=== PATIENT | female | born 1975 | race Caucasian/White ===

== ENCOUNTER 2017-01-26 23:58 | Inpatient (IN) ==
[2017-01-27] MEDS ORDERED: NS 1,000 ML IV ONE (00:33)
[2017-01-27 00:46] LABS: ALLEN TEST YES; BE 0.5 mmoll (-3.0-3.0); BLOOD TYPE ARTERIAL; DRAW SITE R BRACHIAL; O2(CT) 15.6 mL/dL (15.0-23.0); PCO2(98.6) 41 mmHg (35-45); PO2(98.6) 90 mmHg (60-100); SAMPLE BLOOD; THB 11.8 g/dL (11.5-17.4)
[2017-01-27 00:47] LABS: MODALITY CANNULA
[2017-01-27 00:49] LABS: MANUAL DIFF NEEDED? NO
[2017-01-27 00:53] LABS: BASO% 0.3 % (0.0-0.8); EOS# 0.28 X1000 (0.0-0.7); EOS% 3.2 % (0.0-10.0); HEMATOCRIT 36.1 % (37.0-47.0); HEMOGLOBIN 12.2 g/dL (12.0-16.0); IMM GRAN# 0.02 X1000 (0.0-0.04); IMM GRAN% 0.2 % (0.0-0.5); LYMPH# 1.57 X1000 (1.2-3.4); MCH 30.5 PG (27-31); MCHC 33.8 g/dL (33-37); MCV 90.3 FL (81-99); MONO# 0.66 X1000 (0.11-0.59); MONO% 7.6 % (1.7-9.3); MPV 8.7 FL (7.4-10.4); NEUT% 70.7 % (42.2-75.2); PLT 243 X1000 (130-400)
[2017-01-27 01:13] LABS: AGAP 12; ALBUMIN 4.2 g/dL (3.5-5.0); ALKALINE PHOSPHATASE 89 U/L (32-104); BUN 9 mg/dL (8-22); CALCIUM 8.6 mg/dL (8.8-10.2); CHLORIDE 104 mmol/L (98-107); COSMO 280; GOT 48 U/L (10-30); GPT 19 U/L (10-36); POTASSIUM 3.8 mmol/L (3.5-5.1); SODIUM 141 mmol/L (136-145); TCO2 25 mmol/L (25-35)
[2017-01-27 01:35] LABS: URINE MICRO REVIEW NEEDED? NO; URINE SOURCE CATH
[2017-01-27 01:50] LABS: BILIRUBIN URINE NEGATIVE (NEGATIVE); BLOOD URINE NEGATIVE (NEGATIVE); COLOR YELLOW; GLUCOSE URINE NEGATIVE (NEGATIVE); LEUKOCYTES URINE NEGATIVE (NEGATIVE); NITRITE URINE NEGATIVE (NEGATIVE); PH URINE 6.5; PROTEIN URINE TRACE mg/dL (NEGATIVE); SP GRAVITY URINE 1.017; TURBIDITY URINE CLEAR (CLEAR); UROBILINOGEN URINE NORMAL (NORMAL)
[2017-01-27 01:52] LABS: UR EPITHELIAL CELLS <10 /HPF (<10); URINE BACTERIA 3+ /HPF; URINE CULTURE NEEDED? YES; URINE RBC <10 /HPF (<10); URINE WBC <10 /HPF (<10)
[2017-01-27 02:12] LABS: UR AMPHETAMINES QUAL NONE DETECTED (NONE DETECT); UR BARBITUATES QUAL NONE DETECTED (NONE DETECT); UR BENZODIAZEPIN QUAL PRESUMPTIVE POSITIVE (NONE DETECT); UR CANNABINOIDS QUAL NONE DETECTED (NONE DETECT); UR COCAINE QUAL PRESUMPTIVE POSITIVE (NONE DETECT); UR METHADONE QUAL NONE DETECTED (NONE DETECT); UR OPIATES QUAL PRESUMPTIVE POSITIVE (NONE DETECT); UR OXYCODONE QUAL PRESUMPTIVE POSITIVE (NONE DETECT); UR PCP QUAL PRESUMPTIVE POSITIVE (NONE DETECT)
--- NOTE | 2017-01-27 03:42 | PROVIDER DOCUMENTATION ---
This chart was entered by Ab Vasquez Scribe, acting as scribe for Lance Edmonds MD. [id number] Abuse/Overdose - General Chief Complaint: Overdose Stated Complaint: AMS, POSSIBLE OVERDOSE Time Seen by Provider: 01/27/17 00:23 Source: family Allergies/Adverse Reactions: Allergies Allergy/AdvReac Type Severity Reaction Status Date / Time No Known Allergies Allergy Verified 01/27/17 00:27 Home Medications: Home Medication List Medication Instructions Recorded Confirmed Last Taken Type Gabapentin [Neurontin] 800 mg PO TID 10/28/14 01/27/17 09/04/16 History Clonazepam [Klonopin] 2 mg PO TID PRN 09/08/15 01/27/17 09/04/16 History Buprenorphine S.l. [Subutex] 4 mg SL BID #30 tablet 11/12/15 01/27/17 09/04/16 Rx Amitriptyline [Elavil] 100 mg PO DAILY 09/04/16 01/27/17 09/03/16 History - History of Present Illness-Drug/Alcohol Nature of Presenting Problem: Pt is a 41 yowf who presents to ER with who reports that pt might have overdosed on her amitriptyline. reports that pt got home at 0400 yesterday am after drinking etoh, had a verbal altercation with her , and then made indications that she overdosed on her medicine, but states that pt later said that she did not overdose. This episode of drinking or use began:: unsure Severity: reports: moderate Situational problems related to:: reports: spouse Psychiatric Complaints: reports: other (pt sleeping on exam) Associated Symptoms: reports: fatigue. denies: chest pain, diaphoresis, diarrhea, fever/chills, headaches, heartburn, joint pain, loss of appetite, muscle aches, nausea, shortness of breath, vomiting, weakness, trouble walking Any injuries associated with this episode of intoxication?: No Similar Symptoms Previously?: Yes Recently seen or treated by another doctor?: No Review of Systems - Adult - REVIEW OF SYSTEMS - ADULT Constitutional: denies: chills, fever, fatique, night sweats, weight gain, weight loss Eyes: reports: no symptoms reported Ears, Nose, Mouth & Throat: reports: no symptoms reported Cardiovascular: denies: chest pain, irregular heart rate, palpitations, poor circulation, syncope Respiratory: denies: cough, dyspnea on exertion, excessive sputum production, shortness of breath, wheezing Gastrointestinal: reports: no symptoms reported Genitourinary: reports: no symptoms reported Musculoskeletal: reports: no symptoms reported Integumentary: reports: no symptoms reported Neurological: reports: no symptoms reported Psychiatric: reports: anti-depressant use, alcohol/drug dependence, depression, emotional problems. denies: anxiety, insomnia, panic attacks, suicidal thoughts Endocrine: reports: no symptoms reported Hematologic/Lymphatic: reports: no symptoms reported Allergic/Immunologic: reports: no symptoms reported All Other Systems: Reviewed and Negative Past History - Adult - PAST MEDICAL HISTORY-ADULT Review of Records: reports: Nursing Assessment Review, Medications Reviewed Musculoskeletal: reports: intervertebral disc disease, other Neurological: reports: headaches/migraines Psychiatric: reports: anxiety, bipolar - PRIOR SURGERIES/PROCEDURES Surgical/Procedure History: reports: BTL - IMMUNIZATION STATUS Childhood Immunizations: See Nurse Assessment Flu Vaccine: See Nurse Assessment Physical Exam-General - PHYSICAL EXAM-ADULT Initial Vital Signs Reviewed: Yes - CONSTITUTIONAL General Appearance: appears well, lethargic, other (sleeping on exam). negative : alert - EYES Eyes: PERRL/EOMI, pink conjunctivae - RESPIRATORY Respiratory: chest non-tender, lungs clear, normal breath sounds, no pleuratic chest pain, no respiratory distress, no accessory muscle use. negative: respiratory distress, decreased breath sounds, accessory muscle use, wheezing - CARDIOVASCULAR Cardiovascular: normal peripheral pulses, regular rate, rhythm. negative: bradycardia, tachycardia, irregularly irregular - GASTROINTESTINAL (ABDOMEN) Abdominal Exam: normal bowel sounds, soft, no organomegaly, no pulsatile mass, tenderness (diffusely tender). negative: non tender - PSYCHIATRIC Psych/Mental Status: normal thought content, normal thought process, depressed affect, other (sleeping on exam). negative: normal mood/affect, oriented x 3 Progress - PLAN OF CARE/RESULTS Progress/Plan/Lab Results: Vital Signs - 8 hr 01/27/17 00:14 01/27/17 01:09 01/27/17 03:00 Temperature 97.9 F Pulse Rate 102 H 94 H 92 H Respiratory Rate 16 19 23 Blood Pressure 97/58 128/85 124/84 O2 Sat by Pulse Oximetry 97 100 100 Laboratory Results - last 24 hr 01/27/17 01/27/17 01/27/17 00:37 00:37 00:37 WBC 8.70 RBC 4.00 L Hgb 12.2 Hct 36.1 L MCV 90.3 MCH 30.5 MCHC 33.8 RDW Std Deviation 13.5 Plt Count 243 MPV 8.7 Immature Gran % (Auto) 0.2 Neut % (Auto) 70.7 Lymph % (Auto) 18.0 L Carl[place] % (Auto) 7.6 Eos % (Auto) 3.2 Baso % (Auto) 0.3 Immature Gran # (Auto) 0.02 Neut # (Auto) 6.14 Lymph # (Auto) 1.57 Carlton # (Auto) 0.66 H Eos # (Auto) 0.28 Baso # (Auto) 0.03 Specimen Type ARTERIAL Sample Site R BRACHIAL pH 7.40 pCO2 41 pO2 90 HCO3 25.2 Base Excess 0.5 Oxyhemoglobin 93.3 L ABG O2 Sat (Calculated) 15.6 ABG O2 Saturation 98.0 ABG Carboxyhemoglobin 3.80 H ABG Methemoglobin 1.0 Luis Test YES A-a O2 Difference 58.0 Total Hemoglobin 11.8 Lactate 0.50 Liter Flow 2.0 Blood Gas Modality CANNULA FiO2 % 28.0 Sodium Potassium Chloride Carbon Dioxide Anion Gap BUN Creatinine Estimated GFR/1.73 m2 BUN/Creatinine Ratio Glucose Calculated Osmolality Calcium Total Bilirubin AST ALT Alkaline Phosphatase Total Protein Albumin Globulin Albumin/Globulin Ratio Urine Source Urine Color Urine Turbidity Urine pH Ur Specific [place] Urine Protein Ur Glucose (Stick) Ur Ketones (Stick) Urine Blood Urine Nitrite Urine Bilirubin Urobilinogen Dipstick Urine Leukocytes Urine WBC (Auto) Urine RBC (Auto) U Epithel Cells (Auto) Urine Bacteria (Auto) Urine Opiates Screen Ur Oxycodone Screen Ur Methadone, Qual Ur Barbiturates Screen Ur Phencyclidine Scrn Ur Amphetamines Screen U Benzodiazepines Scrn Urine Cocaine Screen U Cannabinoids Screen Plasma/Serum Ethyl Alc 01/27/17 01/27/17 01/27/17 00:37 01:23 01:23 WBC RBC Hgb Hct MCV MCH MCHC RDW Std Deviation Plt Count MPV Immature Gran % (Auto) Neut % (Auto) Lymph % (Auto) Carl[place] % (Auto) Eos % (Auto) Baso % (Auto) Immature Gran # (Auto) Neut # (Auto) Lymph # (Auto) Carl[place] # (Auto) Eos # (Auto) Baso # (Auto) Specimen Type Sample Site pH pCO2 pO2 HCO3 Base Excess Oxyhemoglobin ABG O2 Sat (Calculated) ABG O2 Saturation ABG Carboxyhemoglobin ABG Methemoglobin Luis Test A-a O2 Difference Total Hemoglobin Lactate Liter Flow Blood Gas Modality FiO2 % Sodium 141 Potassium 3.8 Chloride 104 Carbon Dioxide 25 Anion Gap 12 BUN 9 Creatinine 0.9 Estimated GFR/1.73 m2 > 60 BUN/Creatinine Ratio 10 Glucose 97 Calculated Osmolality 280 Calcium 8.6 L Total Bilirubin 0.30 AST 48 H ALT 19 Alkaline Phosphatase 89 Total Protein 7.0 Albumin 4.2 Globulin 2.8 Albumin/Globulin Ratio 1.5 Urine Source CATH Urine Color YELLOW Urine Turbidity CLEAR Urine pH 6.5 Ur Specific [place] 1.017 Urine Protein TRACE A Ur Glucose (Stick) NEGATIVE Ur Ketones (Stick) NEGATIVE Urine Blood NEGATIVE Urine Nitrite NEGATIVE Urine Bilirubin NEGATIVE Urobilinogen Dipstick NORMAL Urine Leukocytes NEGATIVE Urine WBC (Auto) <10 Urine RBC (Auto) <10 U Epithel Cells (Auto) <10 Urine Bacteria (Auto) 3+ Urine Opiates Screen PRESUMPTIVE POSITIVE A Ur Oxycodone Screen PRESUMPTIVE POSITIVE A Ur Methadone, Qual NONE DETECTED Ur Barbiturates Screen NONE DETECTED Ur Phencyclidine Scrn PRESUMPTIVE POSITIVE A Ur Amphetamines Screen NONE DETECTED U Benzodiazepines Scrn PRESUMPTIVE POSITIVE A Urine Cocaine Screen PRESUMPTIVE POSITIVE A U Cannabinoids Screen NONE DETECTED Plasma/Serum Ethyl Alc Orders Category Date Time Status CHEST-PORTABLE [RAD] Stat Exams 01/27/17 00:31 Taken HEAD W/O CONTRAST [CT] Stat Exams 01/27/17 00:31 Taken ABG [RESP] Routine Lab 01/27/17 00:37 Completed ALCOHOL BLOOD Stat Lab 01/27/17 00:37 Completed CBC WITH DIFF [HEME] Stat Lab 01/27/17 00:37 Completed CMP [COMPREHENSIVE METABOLIC PANEL] [CHEM] Stat Lab 01/27/17 00:37 Completed URINALYSIS W/POSS RFLX CULT [URINALYSIS] Stat Lab 01/27/17 01:23 Completed URINE CULTURE [RM] Routine Lab 01/27/17 02:16 Received URINE DRUG SCREEN Stat Lab 01/27/17 01:23 Completed 0.9% Sodium Chloride Inj [Ns] 1,000 ml Med 01/27/17 00:33 Active IV 150 mls/hr EKG [EKG] Stat Ther 01/27/17 00:31 Ordered Result Diagrams: 01/27/17 00:37 01/27/17 00:37 - XRAY 1 XRAY: Bilateral XRAY Study: Chest Impression: See EMR Report XRAY Interpretation: Normal - Dr. Edmonds - CT/MRI 1 CT Study: Head Impression: See EMR Report CT Results: No acute intracranial abnormality is identified - Dr. Gutierrez ( Radiologist) - CONSULTS/PCP/HOSPITALIST Notification #1 *Consult/PCP/Hospitalist*: [place] Time Discussed: 03:41 Consult Disposition: Will see in ED, Admit Departure - Departure Date of Disposition Decision: 01/27/17 Time of Disposition Decision: 00:30 DIAGNOSIS: Overdose, Polysubstance abuse Disposition: ADMITTED INPATIENT 09 Certified Medical Emergency: Emergent Condition: Fair Referrals and Follow-Ups: Golden Terrell MD [Primary Care Provider] - - Critical Care Note This patient required my direct & personal management of CC.: No This chart was documented by the indicated scribe, (Ab Vasquez Scribe) and accurately reflects the services I performed and decisions made by me, Lance Edmonds MD, as attested by the provider's signature.
[2017-01-27] MEDS ORDERED: ZOFRAN IV PRN (04:30)
[2017-01-27] MEDS: LOVENOX SUBQ SCH (05:37)
--- NOTE | 2017-01-27 05:45 | HISTORY AND PHYSICAL ---
CHIEF COMPLAINT: Altered mental status. HISTORY OF PRESENT ILLNESS: This is a 41-year-old female with a longstanding history of polysubstance abuse, including [place], Roxicodone, Percocet, cocaine, marijuana and alcohol. She has been in and out of [facility] but failed drug testing. The patient was obtunded and was not able to tell us on this admission if she has been currently receiving treatment. She reportedly went out drinking with her daughter who is 26 on and has been altered since then. There was no family at the bedside during the interview and the patient was not able to provide much past medical history. She did reflex to pain. She had severely slurred speech, although she was oriented to person, place, and situation and did ask that her not find out that she had taken drugs. An EKG was obtained in the ER which showed a prolonged QT interval. Toxicology screen was presumptively positive for opiates, oxycodone, phencyclidine, benzodiazepines and cocaine. She will be admitted to the ICU with frequent neuro checks for further evaluation and treatment. PAST MEDICAL HISTORY: 1. Polysubstance abuse. 2. Head injuries. 3. Blackouts. 4. Bipolar disorder. 5. Depression. 6. Chronic hemorrhoids. 7. Iron deficiency anemia. 8. History of TB. 9. Chronic migraines. 10. Arthritis. PREVIOUS SURGICAL HISTORY: Was unable to review. SOCIAL HISTORY: Lives at home with her . Apparently does recreationally use drugs and has for quite some time. Smokes 1 pack of cigarettes per day and does occasionally use alcohol according to old medical charting. The patient did admit to drinking and having 2 "lines of cocaine." FAMILY HISTORY: Again, this could not be reviewed with the patient, as she was fairly lethargic and only aroused and spoke very few words. ALLERGIES: No known drug allergies. HOME MEDICATIONS: 1. Neurontin 800 mg p.o. t.i.d. 2. Klonopin 2 mg p.o. t.i.d. p.r.n. 3. Subutex 4 mg sublingual b.i.d. 4. Elavil 100 mg p.o. daily, although I am not sure if this is an updated medication list. REVIEW OF SYSTEMS: Fourteen point review of systems could not be fully conducted. Pertinent positives are listed above in the HPI for admission. PHYSICAL EXAMINATION: VITAL SIGNS: Temperature 97.9 degrees, pulse 97, respirations 18, blood pressure 115/81, oxygen saturation 100% on 2 L nasal cannula. GENERAL: Very lethargic to obtunded 41-year-old female. Does arouse to very deep stimulus. She was able to provide her name, that she was in the hospital and that she had taken some illicit substances. She is in no acute distress. HEENT: Head is atraumatic, normocephalic. Pupils equal, round, reactive to light. Extraocular eye movement intact. Sclerae is anicteric. Conjunctivae is pink. Oral mucosa is dry. Her lips were noted to be chapped. NECK: Supple. Trachea is midline. No JVD. CARDIAC: S1-S2 appreciated. No murmurs, gallops, rubs. Regular rhythm. LUNGS: Clear to auscultation bilaterally. No rhonchi, wheezes, or rales. Symmetrical rise and fall with respirations. ABDOMEN: Soft, nondistended, nontender. Bowel sounds present in all 4 quadrants. Normoactive. No pulsatile mass. No organomegaly. EXTREMITIES: No clubbing, cyanosis, or edema. Two plus pedal pulses. GENITOURINARY: Patient voids, otherwise deferred. DIAGNOSTIC DATA: CT of the head showed no acute intracranial process. Chest x-ray, no acute disease. LABORATORY DATA: Hemoglobin 12.2, hematocrit 36.1. ABG within normal limits. Chemistry panel within normal limits aside from calcium of 8.6 and AST of 48. Urine unremarkable. Toxicology screen positive for opiates, oxycodone, phencyclidine, benzodiazepines and cocaine. ASSESSMENT AND PLAN: 1. Toxic encephalopathy secondary to polysubstance abuse. We will place an ICU. Repeat EKG in a.m. Repeat magnesium level at noon related to prolonged QT interval. Normal saline at 150 mL an hour. Neuro checks q.2 hours. 2. Tobacco abuse. Smoking cessation could not be gone over with the patient, as she is mostly obtunded. 3. Migraines. We will hold all medications at this time. 4. Chronic opioid and benzodiazepine use. We will hold all sedating medications at this time. 5. Iron deficiency anemia. Hemoglobin and hematocrit are stable at this time. 6. Further recommendations per patient clinical course. Dictated by JORI Elizabeth for Chantell Mendez MD Seen,examined and discussed case with [employer] cc: JORI Elizabeth MD [facility]
--- NOTE | 2017-01-27 09:08 | Diag Imaging Result Doc PS360 ---
HEAD W/O CONTRAST - 01/27/2017 INDICATION: aloc TECHNIQUE: A CT dose reduction protocol was used. COMPARISON: 09/09/2011 FINDINGS: The ventricles and sulci are normal in size and contour. No intracranial mass or hemorrhage. The skull is intact. The sinuses mastoids and middle ears are clear. IMPRESSION: Negative exam. Electronically signed by Shar Pedraza 01/27/2017 9:05 AM
--- NOTE | 2017-01-27 09:09 | Diag Imaging Result Doc PS360 ---
CHEST-PORTABLE - 01/27/2017 INDICATION: aloc TECHNIQUE: COMPARISON: 11/12/2015 FINDINGS: Lung volumes are low with some patchy lower lobe atelectasis or infiltrate on the right side. Heart size remains normal. No pneumothorax or pleural effusion. IMPRESSION: Nonspecific findings. Electronically signed by Shar Pedraza 01/27/2017 9:07 AM
--- NOTE | 2017-01-27 09:26 | PROGRESS NOTE ---
DATE: 01/27/2017 SUBJECTIVE: Ms. Lindsey was admitted early this morning. Presented with altered mental status. She is a patient of Dr. Golden Terrell. 41-year-old with a longstanding history of polysubstance abuse including [place], oxycodone, Percocet, cocaine, marijuana, and alcohol. She has been in and out of [facility] treatment and failed drug testing. Patient is obtunded and not able to tell us on this admission if she has been currently receiving treatment. She reportedly went out drinking with her daughter, who is 26, on and has been altered since then. By the report, there is no family at the bedside during the interview, and the patient was not able to provide much medical history. She did reflux to pain. She had severely slurred speech, although she was oriented to person, place, and situation and did ask that her or fiancee not find out that she had been taken drugs. An EKG was obtained in the ER which showed prolonged QT interval. Toxicology screen was presumptively positive for opiates, oxycodone, phencyclidine, benzodiazepines, and cocaine. She was admitted to the ICU. PAST MEDICAL HISTORY: 1. Polysubstance abuse. 2. Head injuries. 3. Blackouts. 4. Bipolar disorder. 5. Depression. 6. Chronic hemorrhoids. 7. Iron deficiency anemia. 8. History of TB. 9. Chronic migraines. 10. Arthritis. The patient is a lethargic but arousable. She starts crying when she realizes where she is. She can move all extremities. No focal neurologic deficits appreciated. OBJECTIVE: Her temperature is 97.2 degrees, pulse 86, respirations 20, blood pressure 105/68. The pupils are equal and round this morning. Lungs clear in all lung gtz. Cardiovascular: Regular rhythm and rate without murmur or S3. Abdomen soft. Skin is warm and dry. White count 8700, hematocrit 36, platelet count 243,000. Sodium 141, potassium 3.8, chloride 104, bicarb 25. BUN 9, creatinine 0.9, calcium 8.6. Liver functions: Mild elevation of AST. She is positive for opiates, oxycodone, phencyclidine, benzodiazepines, and cocaine on the urine drug screen. ASSESSMENT AND PLAN: Drug overdose. Metabolic encephalopathy seems to be improving, hemodynamically stable. Continue IV fluids and observation in the ICU. I do not hear any history to suggest suicidal ideation. cc: Luis Paige MD
[2017-01-27] MEDS: NS 1,000 ML IV SCH (23:59)
[2017-01-27] MEDS: ATIVAN PO PRN (23:59)
[2017-01-28] MEDS: NS 1,000 ML IV SCH ×2 (06:01→14:08)
[2017-01-28 06:58] LABS: MANUAL DIFF NEEDED? NO
[2017-01-28 07:31] LABS: BASO% 0.5 % (0.0-0.8); EOS# 0.41 X1000 (0.0-0.7); EOS% 7.1 % (0.0-10.0); HEMATOCRIT 30.5 % (37.0-47.0); HEMOGLOBIN 10.3 g/dL (12.0-16.0); LYMPH% 39.8 % (20.5-51.1); MCH 30.4 PG (27-31); MCHC 33.8 g/dL (33-37); MONO# 0.39 X1000 (0.11-0.59); MONO% 6.7 % (1.7-9.3); MPV 9.1 FL (7.4-10.4); NEUT% 45.9 % (42.2-75.2); PLT 218 X1000 (130-400); RBC 3.39 XMIL (4.2-5.4)
[2017-01-28 07:36] LABS: AGAP 9; BUN 7 mg/dL (8-22); CALCIUM 8.1 mg/dL (8.8-10.2); CHLORIDE 107 mmol/L (98-107); COSMO 275; POTASSIUM 3.7 mmol/L (3.5-5.1); SODIUM 139 mmol/L (136-145); TCO2 23 mmol/L (25-35)
[2017-01-28] MEDS: LOVENOX SUBQ SCH (09:03)
[2017-01-28] MEDS: ATIVAN PO PRN ×2 (12:16→20:59)
[2017-01-28] MEDS: KLONOPIN PO PRN ×2 (13:49→21:02)
[2017-01-28] MEDS: NEURONTIN PO SCH (16:25)
[2017-01-28] MEDS: NICODERM PATCH TD PRN (16:38)
--- NOTE | 2017-01-28 17:24 | PROGRESS NOTE ---
DATE: 01/28/2017 SUBJECTIVE: She was very tearful and says she does not feel very good. She wants to just get away somewhere. She asked if I would have [facility] evaluate her, and see if she could go there for a time. Talked to her fiancee, he is concerned. It just does not seem like she has been very arthur and gets very anxious at times. Other times, she seems to be mellow and seems to get panic attacks. She just does not think the medication is working and feels like somebody needs to put her in the hospital and see if they can get her regulated. I am not sure if he is aware of all her medications including recreation medications she is taking. There has been a request not to discuss this. OBJECTIVE: Temperature 98 degrees, pulse 96, respirations 22, and blood pressure 120/69. HEENT: The pupils are equal and round. Lungs: Clear in all lung gtz. Cardiovascular: Regular rhythm and rate without murmur or S3. Abdomen: Soft. Skin: Warm and dry. Urine output 4 L. LABORATORY: White count 5780, hematocrit 30, platelet count 218,000, sodium 139, potassium 3.7, chloride 107, BUN 7 creatinine 0.8, and calcium 8.1. ASSESSMENT AND PLAN: 1. Polysubstance abuse. Polysubstance overdose, doing much better and hemodynamically stable. Breathing comfortably. 2. He has been diagnosed with bipolar. According to the fiancee, it does not feel like it has been well controlled. Would like her to go to a facility for more intensive therapy. 3. Major depression related to the bipolar. 4. Significant anxiety. I told her I would put her back on her Klonopin and start her on regular diet. 5. Review of lab again and review her current orders note her medication from home. Course in the drug screen, she was positive for opiates, oxycodone, phencyclidine, benzodiazepine and cocaine. There was no ethanol detected. MEDICATIONS AT HOME: She is on Elavil 100 mg a day. She is on Subutex 4 mg sublingual b.i.d. She is on her Klonopin 2 mg p.o. t.i.d. and Neurontin 800 mg t.i.d., and we will see if we can start those back. cc: Luis Paige MD
[2017-01-28] MEDS: SUBUTEX SL SCH (21:00)
[2017-01-28] MEDS ORDERED: ELAVIL PO SCH (23:41)
[2017-01-29] MEDS: NS 1,000 ML IV SCH ×3 (04:45→15:18)
--- NOTE | 2017-01-29 06:25 | EKG Report ---
Test Performed on : 01/27/2017 06:45:44 AM Test Reason : prolonged qt Blood Pressure : / mmHG Vent. Rate : 087 BPM Atrial Rate : 087 BPM P-R Int : 176 ms QRS Dur : 112 ms QT Int : 398 ms P-R-T Axes : 048 041 042 degrees QTc Int : 478 ms Normal sinus rhythm. Normal ECG When compared with ECG of 27-JAN-2017 04:04, (Unconfirmed) No significant change was found Confirmed by Flex FUNES, Yoshi Cosby ([id number]) on 01/30/2017 2:15:01 PM
[2017-01-29] MEDS: NEURONTIN PO SCH ×2 (08:55→15:17)
[2017-01-29] MEDS: LOVENOX SUBQ SCH (08:55)
[2017-01-29] MEDS: SUBUTEX SL SCH (08:55)
[2017-01-29] MEDS: NICODERM PATCH TD PRN (08:56)
[2017-01-29] MEDS: KLONOPIN PO PRN ×2 (08:56→15:17)
[2017-01-29] MEDS ORDERED: ELAVIL PO SCH (09:00)
[2017-01-29] MEDS ORDERED: SUBUTEX SL SCH (13:00)
[2017-01-29 14:31] VITALS: BP 134/93
--- NOTE | 2017-01-29 15:16 | PROGRESS NOTE ---
DATE: 01/29/2017 SUBJECTIVE: She is feeling much better. She wanted to know when she can go home and she would like to know she could get set up with a psychiatrist here in town. She also like to see if she can get signed up for Medicaid. I did explain that I am not sure we will find an inpatient setting. We will ask social workers to see if we can line up a psychiatrist here in town to help with the bipolar. She is eating well. Breathing comfortably. She just feels like she needs some help getting her bipolar disease straightened out. OBJECTIVE: Vital signs: Temperature 97.8 degrees, pulse 85, respirations 20, blood pressure 124/93. Lungs: Clear in all lung gtz. Cardiovascular: Regular rhythm and rate without murmur or S3. Abdomen: Soft. Skin: Is warm and dry. Urine output is 1200 mL. LAB: No new lab. ASSESSMENT AND PLAN: 1. Overdose multiple drugs and apparently long history of opioid dependency, she is back on the Suboxone. She needs to get follow up with the [facility]. 2. Bipolar which she feels like has never been stabilized. See if we can find psychiatrist here in town. 3. Major depression part of the bipolar, severe general anxiety with panic attacks. See if we can line her up to get followup for psychiatric care. Ask social service to help and see if she can get on Medicaid. cc: Luis Paige MD
--- NOTE | 2017-01-29 17:08 | DISCHARGE SUMMARY ---
ADMISSION DATE: 01/27/2017 DISCHARGE DATE: 01/29/2017 HISTORY AND HOSPITAL COURSE: This is a 41-year-old with a long-standing history of polysubstance abuse including [place], oxycodone, Percocet, codeine, marijuana, alcohol. She has been in and out of [facility] treatment but failed drug testing. The patient was obtunded and on presentation was not able to give much of the history this time. She reported she went out drinking with her daughter who is 26 on and had been altered since. There is no family at the bedside during the interview. The patient was not able to provide much past medical history. She did reflex to pain. She had severe slurred speech when she was aroused. She was oriented to person, place, and situation. Did ask that her fiance not find out that she was taking drugs. An EKG was obtained in the ER which showed prolonged QT interval. Toxicology screen presumed positive for opiates, oxycodone, phencyclidine, benzodiazepines, and cocaine. She was moved to the unit and she was given some IV fluids. She remained hemodynamically stable. Respiratory status seemed to be good with good air and gas exchange. We did replace electrolytes. She did arouse after 24 hours and she was able to eat, requested solid food. We put her back on her home list of medicines after almost 48 hours. She is getting Klonopin twice a day. She was on Subutex. She claims it was 8 mg t.i.d. She is taking 2 mg of Klonopin which she was taking t.i.d. by her report. She wanted to try and go over to a rehab facility and try to get evaluated by Ricardo. She is a private pay, with no money. She want to see if she could get eligible for Medicaid. There were no facilities willing to transfer her there and so she wanted to go home. She requested that we give her prescriptions for her Klonopin and her Suboxone, but we explained she will need to get that from her from her primary care and she will need to get back into a pain clinic. As far as her bipolar, she needs to continue to go back to her psychiatrist. cc: Luis Paige MD
== END 2017-01-29 15:52 | disposition home or self-care (01) ==
LOC: ED 23:58 → SUATTDRO 01-27 04:10 → ICU 01-27 04:10 → 3N 01-27 23:40
PROVIDERS: ATTEND Emergency Medicine

== ENCOUNTER 2017-03-05 13:31 | Inpatient (IN) ==
[2017-03-05 13:57] LABS: URINE CULTURE NEEDED? NO; URINE MICRO REVIEW NEEDED? NO; URINE SOURCE CLEAN CATCH
[2017-03-05 14:07] LABS: BILIRUBIN URINE NEGATIVE (NEGATIVE); BLOOD URINE TRACE (NEGATIVE); COLOR YELLOW; GLUCOSE URINE NEGATIVE (NEGATIVE); LEUKOCYTES URINE NEGATIVE (NEGATIVE); NITRITE URINE NEGATIVE (NEGATIVE); PROTEIN URINE NEGATIVE (NEGATIVE); TURBIDITY URINE CLEAR (CLEAR); UR EPITHELIAL CELLS <10 /HPF (<10); URINE BACTERIA NEGATIVE /HPF; URINE RBC <10 /HPF (<10); URINE WBC <10 /HPF (<10); UROBILINOGEN URINE NORMAL (NORMAL)
[2017-03-05 14:12] LABS: MANUAL DIFF NEEDED? NO
[2017-03-05 14:16] LABS: BASO% 0.9 % (0.0-0.8); EOS# 0.46 X1000 (0.0-0.7); EOS% 7.9 % (0.0-10.0); HEMOGLOBIN 11.9 g/dL (12.0-16.0); LYMPH# 1.59 X1000 (1.2-3.4); LYMPH% 27.4 % (20.5-51.1); MCH 30.7 PG (27-31); MCV 87.9 FL (81-99); MONO# 0.68 X1000 (0.11-0.59); MONO% 11.7 % (1.7-9.3); MPV 9.7 FL (7.4-10.4); NEUT% 52.1 % (42.2-75.2); PLT 238 X1000 (130-400); RBC 3.87 XMIL (4.2-5.4)
[2017-03-05 14:17] LABS: UR AMPHETAMINES QUAL PRESUMPTIVE POSITIVE (NONE DETECT); UR BARBITUATES QUAL NONE DETECTED (NONE DETECT); UR BENZODIAZEPIN QUAL PRESUMPTIVE POSITIVE (NONE DETECT); UR CANNABINOIDS QUAL NONE DETECTED (NONE DETECT); UR COCAINE QUAL NONE DETECTED (NONE DETECT); UR METHADONE QUAL NONE DETECTED (NONE DETECT); UR OPIATES QUAL PRESUMPTIVE POSITIVE (NONE DETECT); UR OXYCODONE QUAL PRESUMPTIVE POSITIVE (NONE DETECT); UR PCP QUAL NONE DETECTED (NONE DETECT)
[2017-03-05 14:43] LABS: AGAP 16; ALBUMIN 4.5 g/dL (3.5-5.0); ALKALINE PHOSPHATASE 78 U/L (32-104); AMYLASE 32 U/L (20-200); BUN 11 mg/dL (8-22); CHLORIDE 102 mmol/L (98-107); COSMO 274; GOT 24 U/L (10-30); GPT 18 U/L (10-36); LIPASE 17 U/L (13-60); MAGNESIUM 2.2 mg/dL (1.5-2.7); POTASSIUM 3.2 mmol/L (3.5-5.1); SODIUM 138 mmol/L (136-145); TCO2 20 mmol/L (25-35); TOTAL BILIRUBIN 0.44 mg/dL (0.20-1.00); TOTAL PROTEIN 7.7 g/dL (6.3-8.3)
[2017-03-05 14:59] LABS: ACETAMINOPHEN < 1.2 ug/mL (10-30)
[2017-03-05 15:08] LABS: FREE T4 0.96 ng/dL (0.93-1.70)
[2017-03-05] MEDS ORDERED: KLOR-CON PO ONE ×2 (15:19→22:32)
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
[2017-03-05] MEDS ORDERED: NS + KCL 20 MEQ 1,000 ML IV SCH (22:45)
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
[2017-03-06] MEDS ORDERED: DUONEB (A & A) INH ONE (05:58)
[2017-03-06] MEDS ORDERED: MOTRIN PO PRN (05:58)
[2017-03-06] MEDS ORDERED: HYDROXYZINE IM PRN (05:58)
[2017-03-06] MEDS ORDERED: AYR NASAL DROPS NAS PRN (05:58)
[2017-03-06] MEDS ORDERED: ZOFRAN IV PRN (05:58)
[2017-03-06 07:23] LABS: MANUAL DIFF NEEDED? NO
[2017-03-06 07:28] LABS: BASO% 0.7 % (0.0-0.8); EOS# 0.65 X1000 (0.0-0.7); EOS% 14.3 % (0.0-10.0); HEMATOCRIT 32.7 % (37.0-47.0); HEMOGLOBIN 11.2 g/dL (12.0-16.0); LYMPH# 1.59 X1000 (1.2-3.4); MCH 30.8 PG (27-31); MCHC 34.3 g/dL (33-37); MCV 89.8 FL (81-99); MONO# 0.43 X1000 (0.11-0.59); MONO% 9.5 % (1.7-9.3); MPV 9.9 FL (7.4-10.4); NEUT% 40.5 % (42.2-75.2); PLT 212 X1000 (130-400); RBC 3.64 XMIL (4.2-5.4)
[2017-03-06 07:54] LABS: AGAP 12; ALBUMIN 3.8 g/dL (3.5-5.0); ALKALINE PHOSPHATASE 65 U/L (32-104); BUN 9 mg/dL (8-22); CHLORIDE 107 mmol/L (98-107); COSMO 279; GOT 17 U/L (10-30); GPT 14 U/L (10-36); SODIUM 141 mmol/L (136-145); TCO2 22 mmol/L (25-35); TOTAL BILIRUBIN 0.38 mg/dL (0.20-1.00); TOTAL PROTEIN 6.4 g/dL (6.3-8.3)
[2017-03-06] MEDS ORDERED: NS + KCL 20 MEQ 1,000 ML ONE (10:03)
[2017-03-06] MEDS: TYLENOL PO PRN (12:57)
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
[2017-03-06] MEDS: TRILEPTAL PO SCH (22:49)
[2017-03-06] MEDS: NICODERM PATCH TD SCH (22:49)
[2017-03-06] MEDS: SAPHRIS SL SCH (22:49)
--- NOTE | 2017-03-07 05:31 | EKG Report ---
Test Performed on : 03/06/2017 11:33:58 PM Test Reason : sudden pain Blood Pressure : / mmHG Vent. Rate : 071 BPM Atrial Rate : 071 BPM P-R Int : 126 ms QRS Dur : 086 ms QT Int : 396 ms P-R-T Axes : 049 051 046 degrees QTc Int : 430 ms Sinus rhythm. with marked sinus arrhythmia. Otherwise normal ECG When compared with ECG of 05-MAR-2017 21:51, Criteria for Lateral infarct are no longer present ST no longer depressed in Anterior leads Nonspecific T wave abnormality no longer evident in Inferior leads Nonspecific T wave abnormality no longer evident in Anterolateral leads Confirmed by Yunier Clay DO ([id number]) on 03/09/2017 1:01:06 PM
--- NOTE | 2017-03-07 07:29 | PROGRESS NOTE ---
DATE: 03/07/2017 SUBJECTIVE: She had a pretty uneventful night. She is asking for her Klonopin back. She is just kind of aching all over. PHYSICAL EXAMINATION: Vital Signs: Temperature 97.6 degrees, pulse 54, respirations 16, blood pressure 95/58. Respiratory: Lungs are clear in all lung gtz. Cardiovascular Examination: Regular rhythm and rate without murmur or S3. Abdomen: Soft. Skin: Is warm and dry. Is and Os: Urine output 400 mL. LAB: From yesterday reviewed. Hematocrit stable at 32. Chemistries were unremarkable. Magnesium was 2.2. Liver functions, transaminases unremarkable. ASSESSMENT AND PLAN: 1. Toxic encephalopathy, substance abuse. She is improved. I put her back on her Klonopin. 2. Hypokalemia, supplemented. 3. History of migraines. 4. History of polysubstance abuse. 5. Depression. 6. She really has no place to go right now. I asked social media executive to help us to see if she could consider rehab or what her options are. We will add back her Klonopin. She is on a fairly stiff dose of that. I think we will put her back on the Klonopin. At this point, she is taking 2 mg three times a day. I am going to cut that down to 1 mg by mouth three times a day in hopes that we can diminish this. What I will do is I will put her back on 1 mg three times a day and see if this will help. cc: Luis Paige MD
[2017-03-07] MEDS: TRILEPTAL PO SCH ×2 (08:11→21:14)
[2017-03-07] MEDS: SAPHRIS SL SCH ×2 (08:11→21:13)
[2017-03-07] MEDS: LEXAPRO PO SCH (08:11)
[2017-03-07] MEDS: KLONOPIN PO SCH ×3 (08:11→21:14)
[2017-03-07] MEDS: TYLENOL PO PRN (17:47)
[2017-03-07] MEDS ORDERED: KLONOPIN PO SCH (21:00)
[2017-03-07] MEDS: NICODERM PATCH TD SCH (21:13)
[2017-03-08] MEDS ORDERED: PNEUMOVAX 23 IM ONE (06:21)
[2017-03-08] MEDS: TYLENOL PO PRN (06:30)
[2017-03-08] MEDS ORDERED: SUBUTEX SL SCH (09:00)
[2017-03-08] MEDS: SAPHRIS SL SCH (09:01)
[2017-03-08] MEDS: TRILEPTAL PO SCH (09:01)
[2017-03-08] MEDS: LEXAPRO PO SCH (09:01)
[2017-03-08] MEDS: KLONOPIN PO SCH (09:01)
[2017-03-08 12:11] VITALS: BP 106/55
--- NOTE | 2017-03-08 13:59 | DISCHARGE SUMMARY ---
ADMISSION DATE: 03/05/2017 DISCHARGE DATE: 03/08/2017 Increased somnolence and lethargy is what she came in with. She is followed by Golden Terrell. A 41-year-old lady with long-standing history of polysubstance abuse. Was last seen here just a month ago for altered mental status secondary to polysubstance abuse. On this occasion patient was picked up by police because she was very lethargic. Noted to be scratching herself because she was itching. She was then brought to the emergency room where she was questioned by Kim Silva to see if she was suicidal. Patient denied being suicidal and had been abusing drugs, methamphetamine. Admitted with methamphetamine. She is also on Suboxone and additional substances including Klonopin which she is apparently on regularly. Admitted very lethargic. We were able to arouse with painful stimuli. Stayed in the ICU and showed steady improvement. The following morning, she was waking up but very lethargic still, very despondent and depressed. Did not want to go home. We were able to move her to the regular floor. She started on regular food. I did start her back on her Klonopin starting at 1 mg t.i.d. and back up to her basal dose 2 mg t.i.d. and she is on Suboxone as well. It was restarted on 03/08/2017. She did talk to social workers about rehab but she wants to go home so we discharged her home. DISCHARGE MEDICATIONS: At home she has taking Saphris 10 mg sublingual b.i.d., Subutex 8 mg sublingual t.i.d., Klonopin 2 mg t.i.d., Lexapro 10 mg a day, Neurontin 800 mg t.i.d., Trileptal 300 mg b.i.d., and Imitrex 50 mg p.o. p.r.n. for migraine. cc: Luis Paige MD
== END 2017-03-08 12:42 | disposition home or self-care (01) ==
LOC: SUPCPDRO → ED 13:31 → EDIPHOLD 13:31 → OBSVTOIN 23:23 → SUATTDRO 23:23 → 3S 03-06 11:57
PROVIDERS: ATTEND Emergency Medicine

== ENCOUNTER 2019-10-09 12:13 | Inpatient (IN) ==
[2019-10-09] MEDS ORDERED: NS 1,000 ML IV ONE (13:06)
[2019-10-09 13:17] LABS: URINE SOURCE CATH
--- NOTE | 2019-10-09 13:21 | Diag Imaging Result Doc PS360 ---
EXAM: CHEST-PORTABLE 10/09/2019 HISTORY: OD TECHNIQUE: AP portable upright at 1313 COMMENT: The inspiration is markedly suboptimal. This was not the case on 03/22/2017. There is some apparent platelike atelectasis in the lung bases. IMPRESSION: Bibasilar atelectasis. Electronically signed by William Bowie 10/09/2019 1:18 PM
[2019-10-09 13:23] LABS: BASO# 0.03 X1000 (0.0-0.2); BASO% 0.7 % (0.0-0.8); EOS# 0.21 X1000 (0.0-0.7); EOS% 4.9 % (0.0-10.0); LYMPH# 1.29 X1000 (1.2-3.4); LYMPH% 29.9 % (20.5-51.1); MCH 29.5 PG (27-31); MCHC 34.2 g/dL (33-37); MCV 86.2 FL (81-99); MONO# 0.32 X1000 (0.11-0.59); MONO% 7.4 % (1.7-9.3); MPV 8.7 FL (7.4-10.4); NEUT# 2.46 X1000 (1.4-6.5); NEUT% 57.1 % (42.2-75.2); PLT 220 X1000 (130-400); RBC 4.41 XMIL (4.2-5.4); RDW 12.1 % (11.5-14.5); WBC 4.31 X1000 (4.8-10.8)
[2019-10-09 13:26] LABS: BILIRUBIN URINE NEGATIVE (NEGATIVE); BLOOD URINE NEGATIVE (NEGATIVE); COLOR YELLOW; GLUCOSE URINE NEGATIVE (NEGATIVE); KETONE URINE NEGATIVE (NEGATIVE); LEUKOCYTES URINE NEGATIVE (NEGATIVE); NITRITE URINE NEGATIVE (NEGATIVE); PH URINE 6.5; PROTEIN URINE NEGATIVE (NEGATIVE); SP GRAVITY URINE 1.023; TURBIDITY URINE CLEAR (CLEAR); UR EPITHELIAL CELLS <10 /HPF (<10); URINE BACTERIA NEGATIVE /HPF; URINE RBC <10 /HPF (<10); URINE WBC <10 /HPF (<10); UROBILINOGEN URINE NORMAL (NORMAL)
[2019-10-09 13:41] LABS: ACETAMINOPHEN 2.8 ug/mL (10-30); AGAP 12; ALB/GLOB RATIO 1.6; ALBUMIN 3.9 g/dL (3.5-5.0); ALKALINE PHOSPHATASE 99 U/L (32-104); BUN 6 mg/dL (8-22); CHLORIDE 98 mmol/L (98-107); COSMO 266; CREATININE 0.7 mg/dL (0.5-0.9); ESTIMATED GFR > 60; GLUCOSE 95 mg/dL (70-104); GOT 17 U/L (10-30); GPT 11 U/L (10-36); POTASSIUM 4.2 mmol/L (3.5-5.1); SODIUM 134 mmol/L (136-145); TCO2 24 mmol/L (25-35); TOTAL BILIRUBIN 0.28 mg/dL (0.20-1.00); TOTAL PROTEIN 6.3 g/dL (6.3-8.3)
--- NOTE | 2019-10-09 13:42 | EKG Report ---
Test Performed on : 10/09/2019 1:08:28 PM Test Reason : ams Blood Pressure : / mmHG Vent. Rate : 079 BPM Atrial Rate : 079 BPM P-R Int : 144 ms QRS Dur : 096 ms QT Int : 408 ms P-R-T Axes : 016 020 025 degrees QTc Int : 467 ms Normal sinus rhythm. Normal ECG When compared with ECG of 22-MAR-2017 12:34, No significant change was found Unconfirmed Result
[2019-10-09 13:47] LABS: ALLEN TEST NO; BE 0.3 mmoll (-3.0-3.0); BLOOD TYPE ARTERIAL; HCO3-(ACT) 25.1 mmoll (20.0-26.0); METHB 0.9 % (0.0-1.5); O2(CT) 15.8 mL/dL (15.0-23.0); O2HB 93.2 % (95.0-99.0); PCO2(98.6) 42 mmHg (35-45); PO2(98.6) 96 mmHg (60-100); SAMPLE BLOOD; pH(98.6) 7.39 (7.35-7.45)
[2019-10-09 13:48] LABS: UR AMPHETAMINES QUAL NONE DETECTED (NONE DETECT); UR BARBITUATES QUAL NONE DETECTED (NONE DETECT); UR BENZODIAZEPIN QUAL PRESUMPTIVE POSITIVE (NONE DETECT); UR CANNABINOIDS QUAL NONE DETECTED (NONE DETECT); UR COCAINE QUAL PRESUMPTIVE POSITIVE (NONE DETECT); UR METHADONE QUAL NONE DETECTED (NONE DETECT); UR OPIATES QUAL PRESUMPTIVE POSITIVE (NONE DETECT); UR OXYCODONE QUAL NONE DETECTED (NONE DETECT); UR PCP QUAL NONE DETECTED (NONE DETECT)
[2019-10-09 13:48] LABS: MODALITY CANNULA
[2019-10-09] MEDS ORDERED: ACTIDOSE 50 GM LIQUID NG ONE (13:58)
--- NOTE | 2019-10-09 14:02 | PROVIDER DOCUMENTATION ---
This chart was entered by Bonita Ward Scribe, acting as scribe for Xavi Jordan MD. [id number] Abuse/Overdose - General Chief Complaint: Overdose Stated Complaint: overdose Time Seen by Provider: 10/09/19 12:51 Source: patient, EMS Allergies/Adverse Reactions: Allergies Allergy/AdvReac Type Severity Reaction Status Date / Time No Known Allergies Allergy Verified 10/09/19 12:55 Home Medications: Home Medication List Medication Instructions Recorded Confirmed Last Taken Type Gabapentin [Neurontin] 800 mg PO TID@0900,1500,2100 10/28/14 10/09/19 11/27/17 04:15 History Oxcarbazepine 600 mg PO BID 04/24/18 10/09/19 Unknown History Diphenhydramine [Benadryl] 50 mg PO PRN PRN 10/09/19 10/09/19 Unknown History Hydroxyzine Pamoate 25 mg PO QHS 10/09/19 10/09/19 Unknown History Sertraline HCl 100 mg PO QHS 10/09/19 10/09/19 Unknown History Tizanidine HCl 4 mg PO TID 10/09/19 10/09/19 Unknown History - History of Present Illness-Drug/Alcohol Nature of Presenting Problem: 44yof presents to ED by EMS cc overdose according to EMS. EMS reports pt boyfriend found her semi-conscious and she told him she took 15-20 of 50mg Benadryl, this morning. Upon exam pt denies any pain but is tearful, turns head away when asked about trying to kill her self with Benadryl. Pt had an empty bottle of 50mg Benadryl/100 caps, empty bottle of 4mg Zanaflex that is old, bottle of Vistaril with 15 pills left and was filled on 08/04/19, bottle with 7 pills of 100mg Zoloft and bottle of 800mg Neurontin with very few left that was filled 2 wks ago. Pt is very lethargic, falls in and out of sleep and has slurre d speech upon exam. This episode of drinking or use began:: unsure Severity: reports: severe Review of Systems - Adult - REVIEW OF SYSTEMS - ADULT ROS:: limited per condition Constitutional: reports: see HPI. denies: chills, fever Eyes: reports: see HPI Ears, Nose, Mouth & Throat: reports: see HPI Cardiovascular: reports: see HPI Respiratory: reports: see HPI Gastrointestinal: reports: see HPI Genitourinary: reports: see HPI Musculoskeletal: reports: see HPI Integumentary: reports: see HPI Neurological: reports: see HPI Psychiatric: reports: see HPI, other (overdose) Endocrine: reports: see HPI Hematologic/Lymphatic: reports: see HPI Allergic/Immunologic: reports: see HPI All Other Systems: Reviewed and Negative Past History - Adult - PAST MEDICAL HISTORY-ADULT Review of Records: reports: Nursing Assessment Review, Medications Reviewed, Social history reviewed & non-contributory. Major Childhood Illnesses: reports: denies history Cardiovascular: reports: denies history Respiratory: reports: denies history Gastrointestinal: reports: denies history Obstetrical/Gynecological: reports: denies history Genitourinary: reports: denies history Musculoskeletal: reports: intervertebral disc disease, other Neurological: reports: headaches/migraines Psychiatric: reports: anxiety, bipolar Endocrine/Immune: reports: denies history Other Conditions: reports: denies history - PRIOR SURGERIES/PROCEDURES Surgical/Procedure History: reports: BTL - IMMUNIZATION STATUS Childhood Immunizations: See Nurse Assessment Flu Vaccine: See Nurse Assessment - FAMILY HISTORY Family History: reviewed, not pertinent Physical Exam-General - PHYSICAL EXAM-ADULT Initial Vital Signs Reviewed: Yes - CONSTITUTIONAL General Appearance: lethargic (falls in and out of sleep), other (slurred spee ch). negative: anxious, combative - EYES Eyes: PERRL/EOMI (8mm), pink conjunctivae. negative: photophobia - HEAD, EARS, NOSE, MOUTH & THROAT HENMT: normocephalic/atraumatic, moist mucous membranes. negative: angioedema - NECK Neck: supple, normal inspection - RESPIRATORY Respiratory: chest non-tender, lungs clear, normal breath sounds. negative: rhonchi, wheezing - CARDIOVASCULAR Cardiovascular: normal peripheral pulses, regular rate, rhythm, no murmur. negative: bradycardia, tachycardia - GASTROINTESTINAL (ABDOMEN) Abdominal Exam: normal bowel sounds, non tender, soft. negative: guarding, rebound - MUSCULOSKELETAL Extremity: normal inspection, no pedal edema, no calf tenderness, normal capillary refill. negative: deformity - SKIN Integumentary: normal color. negative: diaphoresis, jaundice - PSYCHIATRIC Psych/Mental Status: tearful. negative: anxious Progress - PLAN OF CARE/RESULTS Progress/Plan/Lab Results: Vital Signs - 8 hr 10/09/19 12:50 Temperature 97.7 F Pulse Rate 85 Respiratory Rate 15 Blood Pressure 147/90 O2 Sat by Pulse Oximetry 100 Laboratory Results - last 24 hr 10/09/19 10/09/19 10/09/19 12:44 12:44 12:44 WBC RBC Hgb Hct MCV MCH MCHC RDW Std Deviation Plt Count MPV Immature Gran % (Auto) Neut % (Auto) Lymph % (Auto) [place] % (Auto) Eos % (Auto) Baso % (Auto) Immature Gran # (Auto) Neut # (Auto) Lymph # (Auto) [place] # (Auto) Eos # (Auto) Baso # (Auto) Specimen Type Sample Site pH pCO2 pO2 HCO3 Base Excess Oxyhemoglobin ABG O2 Sat (Calculated) ABG O2 Saturation ABG Carboxyhemoglobin ABG Methemoglobin Luis Test A-a O2 Difference Total Hemoglobin Lactate Liter Flow Blood Gas Modality FiO2 % Sodium 134 L Potassium 4.2 Chloride 98 Carbon Dioxide 24 L Anion Gap 12 BUN 6 L Creatinine 0.7 Estimated GFR/1.73 m2 > 60 BUN/Creatinine Ratio 9 Glucose 95 Calculated Osmolality 266 Calcium 9.0 Total Bilirubin 0.28 AST 17 ALT 11 Alkaline Phosphatase 99 Total Protein 6.3 Albumin 3.9 Globulin 2.4 Albumin/Globulin Ratio 1.6 Plasma Lactate 1.4 Urine Source Urine Color Urine Turbidity Urine pH Ur Specific [place] Urine Protein Ur Glucose (Stick) Ur Ketones (Stick) Urine Blood Urine Nitrite Urine Bilirubin Urobilinogen Dipstick Urine Leukocytes Urine WBC (Auto) Urine RBC (Auto) U Epithel Cells (Auto) Urine Bacteria (Auto) Salicylates 3.40 Urine Opiates Screen Ur Oxycodone Screen Ur Methadone, Qual Acetaminophen 2.8 L Ur Barbiturates Screen Ur Phencyclidine Scrn Ur Amphetamines Screen U Benzodiazepines Scrn Urine Cocaine Screen U Cannabinoids Screen Plasma/Serum Ethyl Alc 10/09/19 10/09/19 10/09/19 12:44 12:46 12:46 WBC 4.31 L RBC 4.41 Hgb 13.0 Hct 38.0 MCV 86.2 MCH 29.5 MCHC 34.2 RDW Std Deviation 12.1 Plt Count 220 MPV 8.7 Immature Gran % (Auto) 0.0 Neut % (Auto) 57.1 Lymph % (Auto) 29.9 [place] % (Auto) 7.4 Eos % (Auto) 4.9 Baso % (Auto) 0.7 Immature Gran # (Auto) 0.00 Neut # (Auto) 2.46 Lymph # (Auto) 1.29 [place] # (Auto) 0.32 Eos # (Auto) 0.21 Baso # (Auto) 0.03 Specimen Type Sample Site pH pCO2 pO2 HCO3 Base Excess Oxyhemoglobin ABG O2 Sat (Calculated) ABG O2 Saturation ABG Carboxyhemoglobin ABG Methemoglobin Luis Test A-a O2 Difference Total Hemoglobin Lactate Liter Flow Blood Gas Modality FiO2 % Sodium Potassium Chloride Carbon Dioxide Anion Gap BUN Creatinine Estimated GFR/1.73 m2 BUN/Creatinine Ratio Glucose Calculated Osmolality Calcium Total Bilirubin AST ALT Alkaline Phosphatase Total Protein Albumin Globulin Albumin/Globulin Ratio Plasma Lactate Urine Source CATH Urine Color YELLOW Urine Turbidity CLEAR Urine pH 6.5 Ur Specific [place] 1.023 Urine Protein NEGATIVE Ur Glucose (Stick) NEGATIVE Ur Ketones (Stick) NEGATIVE Urine Blood NEGATIVE Urine Nitrite NEGATIVE Urine Bilirubin NEGATIVE Urobilinogen Dipstick NORMAL Urine Leukocytes NEGATIVE Urine WBC (Auto) <10 Urine RBC (Auto) <10 U Epithel Cells (Auto) <10 Urine Bacteria (Auto) NEGATIVE Salicylates Urine Opiates Screen PRESUMPTIVE POSITIVE A Ur Oxycodone Screen NONE DETECTED Ur Methadone, Qual NONE DETECTED Acetaminophen Ur Barbiturates Screen NONE DETECTED Ur Phencyclidine Scrn NONE DETECTED Ur Amphetamines Screen NONE DETECTED U Benzodiazepines Scrn PRESUMPTIVE POSITIVE A Urine Cocaine Screen PRESUMPTIVE POSITIVE A U Cannabinoids Screen NONE DETECTED Plasma/Serum Ethyl Alc 10/09/19 13:40 WBC RBC Hgb Hct MCV MCH MCHC RDW Std Deviation Plt Count MPV Immature Gran % (Auto) Neut % (Auto) Lymph % (Auto) [place] % (Auto) Eos % (Auto) Baso % (Auto) Immature Gran # (Auto) Neut # (Auto) Lymph # (Auto) [place] # (Auto) Eos # (Auto) Baso # (Auto) Specimen Type ARTERIAL Sample Site R BRACHIAL pH 7.39 pCO2 42 pO2 96 HCO3 25.1 Base Excess 0.3 Oxyhemoglobin 93.2 L ABG O2 Sat (Calculated) 15.8 ABG O2 Saturation 98.0 ABG Carboxyhemoglobin 3.90 H ABG Methemoglobin 0.9 Luis Test NO A-a O2 Difference 51.0 Total Hemoglobin 12.0 Lactate 0.50 Liter Flow 2.0 Blood Gas Modality [place] FiO2 % 28.0 Sodium Potassium Chloride Carbon Dioxide Anion Gap BUN Creatinine Estimated GFR/1.73 m2 BUN/Creatinine Ratio Glucose Calculated Osmolality Calcium Total Bilirubin AST ALT Alkaline Phosphatase Total Protein Albumin Globulin Albumin/Globulin Ratio Plasma Lactate Urine Source Urine Color Urine Turbidity Urine pH Ur Specific [place] Urine Protein Ur Glucose (Stick) Ur Ketones (Stick) Urine Blood Urine Nitrite Urine Bilirubin Urobilinogen Dipstick Urine Leukocytes Urine WBC (Auto) Urine RBC (Auto) U Epithel Cells (Auto) Urine Bacteria (Auto) Salicylates Urine Opiates Screen Ur Oxycodone Screen Ur Methadone, Qual Acetaminophen Ur Barbiturates Screen Ur Phencyclidine Scrn Ur Amphetamines Screen U Benzodiazepines Scrn Urine Cocaine Screen U Cannabinoids Screen Plasma/Serum Ethyl Alc Orders Category Date Time Status Cardiac Monitoring DIRECTED Care 10/09/19 13:05 Active Finger Stick Blood Sugar (ED) DIRECTED Care 10/09/19 13:05 Active Puentes Cath Insertion ORDERED Care 10/09/19 13:12 Active Initiate Psych Med Clear.Demian DIRECTED Care 10/09/19 13:25 Active NEWS Score 2-4:Order NEWS Lactate Series NOW Care 10/09/19 12:54 Active Psy Observation/Precaution .1:1 Observation Care 10/09/19 13:25 Active Psy Observation/Precaution .Q15 Minute Observation Care 10/09/19 13:25 Active CHEST-PORTABLE [RAD] Stat Exams 10/09/19 13:05 Completed ABG [RESP] Routine Lab 10/09/19 13:40 Completed ACETAMINOPHEN [TDM] Stat Lab 10/09/19 12:44 Completed ALCOHOL BLOOD Stat Lab 10/09/19 12:44 Completed CBC WITH ELECTRONIC DIFF [HEME] Stat Lab 10/09/19 12:44 Completed COMPREHENSIVE METABOLIC PANEL [CHEM] Stat Lab 10/09/19 12:44 Completed LACTATE, PLASMA [CHEM] Lab 10/09/19 16:00 Uncollected LACTATE, PLASMA [CHEM] Lab 10/09/19 19:00 Uncollected LACTATE, PLASMA [CHEM] Q3H Lab 10/09/19 12:44 Completed SALICYLATES [TDM] Stat Lab 10/09/19 12:44 Completed URINALYSIS [URINALYSIS] Stat Lab 10/09/19 12:46 Completed URINE DRUG SCREEN Stat Lab 10/09/19 12:46 Completed 0.9% Sodium Chloride Inj [Ns] 1,000 ml Med 10/09/19 13:06 Active IV 999 mls/hr Charcoal/Sorbitol Solution [Actidose 50 gm Liquid] Med 10/09/19 13:58 Discontinued 50 gm NG NOW ONE Overdose (suspected) Stat Oth 10/09/19 13:04 Ordered EKG [EKG] Stat Ther 10/09/19 13:05 Draft Result Diagrams: 10/09/19 12:44 10/09/19 12:44 - REASSESSMENT Reassessment #1 Time Reassessed: 13:59 Status: unchanged (Patient still too lethargic for psych evaluation, will need overnight medical admission prior to psychiatric screen. Charcoal with sorbitol po has been ordered.) - EKG 1 Time of EKG reading by physician:: 13:09 EKG Read and Signed by:: Xavi Jordan EKG Interpretation (*Must complete 3 of following elements*): Normal Rate: 79 Rhythm: NSR [place]: normal ST Wave: normal - XRAY 1 XRAY: Bilateral XRAY Study: Chest Impression: See EMR Report (IMPRESSION: Bibasilar atelectasis. Electronically signed by William Bowie 10/09/2019 1:18 PM) - CONSULTS/PCP/HOSPITALIST Notification #1 *Consult/PCP/Hospitalist*: JORI Schmidt, paged 1400 Time Discussed: 14:02 ([place] answered) Consult Disposition: Will see in ED, Admit Departure - Departure Date of Disposition Decision: 10/09/19 Time of Disposition Decision: 14:00 DIAGNOSIS: Polysubstance abuse, History of depressed bipolar disorder Overdose of drug/medicinal substance Qualifiers: Encounter type: initial encounter Injury intent: intentional self-harm Qualified Code(s): T50.902A - Poisoning by unspecified drugs, medicaments and biological substances, intentional self-harm, initial encounter Disposition: ADMITTED INPATIENT 09 Certified Medical Emergency: Emergent Condition: Fair Referrals and Follow-Ups: Neel Montaño [Primary Care Provider] - - Critical Care Note This patient required my direct & personal management of CC.: Yes Total Time (mins): 32 Critical Care Statement: This patient required my direct personal management to treat or rule out processes, the absence of which, could potentiallly result in sudden, clinically significant life or limb threatening deterioration. Attestation - Physician/ RASHEEDA Attestation Patient care was provided by Advanced Practice Provider:: No The physician spent face to face time with patient:: Yes Advanced Practice Provider documentation review:: Supervising physician onsite and consulted in the evaluation and care of this patient. The physician did have a face to face encounter with the patient. This chart was documented by the indicated scribe, (Bonita Ward, Anupam) and accurately reflects the services I performed and decisions made by , Xavi Jordan MD, as attested by the provider's signature.
[2019-10-09] MEDS ORDERED: ACTIDOSE 50 GM LIQUID PO ONE (14:46)
[2019-10-09] MEDS ORDERED: STERILE WATER INJ. INJ ONE (15:03)
[2019-10-09] MEDS ORDERED: ATIVAN IM ONE (15:03)
[2019-10-09] MEDS ORDERED: BENADRYL IM ONE (15:03)
[2019-10-09] MEDS ORDERED: GEODON IM ONE (15:03)
[2019-10-09] MEDS ORDERED: STERILE WATER INJ. ONE (15:12)
[2019-10-09] MEDS ORDERED: TYLENOL PO PRN (15:32)
[2019-10-09] MEDS: NS 1,000 ML IV SCH (15:45)
[2019-10-09] MEDS ORDERED: MIRALAX PO ONE (16:27)
--- NOTE | 2019-10-09 18:35 | HISTORY AND PHYSICAL ---
PRESENTING COMPLAINT: Suicidal attempt. HISTORY OF PRESENTING COMPLAINT: Ms. Montejo is a 44-year-old female with history of bipolar disorder, chronic anxiety disorders, who came to the emergency room after she overdosed. According to Ms. Montejo, she went to a friend's house last night. Over there, she refers to have used cocaine, and went home early this morning to sleep. She was woken up early this morning, around 6, by her boyfriend and they started having some argument. The boyfriend threatened to leave the house. After the argument settled, she just wanted to end her life, so she says she took about 20 pills of G-Pep medication which is said to be for sleeping. She also took about 30 pills of a sleeping aid, 50 mg. A couple of minutes later, she started having a jittery sensation and some lethargy, and she was brought into the emergency room where she was evaluated and admitted because of drug overdose. Per the ER documentation, it appears that her bottle for Benadryl, which is 50 mg, was empty, and her Zanaflex was also empty, and Vistaril 15 pills were only left. The patient was said to be very, very lethargic, with slurred speech on exam per the ER documentation. PAST MEDICAL HISTORY: 1. Bipolar disorder. 2. Chronic anxiety. PAST SURGICAL HISTORY: 1. Appendectomy. 2. Tubal ligation. PRIMARY CARE PHYSICIAN: Dr. Montaño. ALLERGIES: Not known. FAMILY HISTORY: Positive for hypertension and dementia in the mother, severe diabetes mellitus in the father. SOCIAL HISTORY: Ms. Montejo lives with her boyfriend and mother. 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 She has more than 30 pack year history. She continues to smoke about a pack a day. She also uses recreational drug occasionally. Her urine toxicology is positive for benzodiazepine, cocaine, and opioids. REVIEW OF SYSTEMS: A 14 point review of systems conducted with Ms. Montejo was unremarkable except for what we have in the HPI. Specifically, Ms. Montejo denies any chest pain, no shortness of breath, no abdominal pain, no diarrhea. PHYSICAL EXAMINATION: VITAL SIGNS: Blood pressure is 147/90, pulse of 85, respiration is 15, temperature 97.7 degrees, and patient is saturating 100%. GENERAL: Ms. Montejo is a 44-year-old female. She is in bed in no distress. HEENT: Mucosa is pink and moist. Anicteric and acyanotic. Head is normocephalic and atraumatic. NECK: Supple. RESPIRATORY: There is good air entry bilaterally. No crepitations. No rhonchi. No accessory muscle use. CARDIOVASCULAR: Regular rate and rhythm. No murmurs, no rubs, no gallops. GI: Abdomen was soft and distended, but nontender. There is an old infraumbilical surgical scar. There is no hepatosplenomegaly. EXTREMITIES: No pedal edema. CLIENT SERVER DEVELOPER: Patient is awake, alert, oriented. Executive function seems to be intact. Power is 5/5. Sensation is intact. PSYCHIATRIC: Ms. Montejo has mood swings, easily tearful, but she is cooperative with interrogation and physical exam. She continues to maintain that she is suicidal. LABORATORY DATA: Has been reviewed. CBC is completely within normal range. Chemistry is also within normal range except sodium which is slightly low. IMAGING STUDIES: Chest x-ray shows bibasilar atelectasis. EKG: Normal sinus rhythm, normal axis. No ST or T-wave abnormality and QT interval is normal. ASSESSMENT: Ms. Montejo has a history of bipolar disorder, on multiple medications at home, had an altercation with her boyfriend and took an undetermined amount of medications, some prescribed, some over the counter, with intention to harm herself. 1. Suicidal attempt. The patient continues to be remarkably suicidal. She is going to be admitted to the medical floor with psychiatric observation, [address] 2. Drug overdose with suicidal intent. So far, electrocardiogram was unremarkable. We are going to continue to monitor. 3. History of bipolar disorder. 4. Altered mental status on presentation, secondary to drug side effects. 5. constipation. Start patient on bowel regimen. cc: Celso Dubon MD [facility]
[2019-10-09] MEDS ORDERED: ZOLOFT PO SCH (21:00)
[2019-10-09] MEDS: TRILEPTAL PO SCH (21:00)
[2019-10-10] MEDS: NS 1,000 ML IV SCH ×2 (06:10→15:30)
[2019-10-10] MEDS ORDERED: MIRALAX PO SCH (09:00)
[2019-10-10 09:14] LABS: AGAP 10; ALB/GLOB RATIO 1.4; ALBUMIN 3.4 g/dL (3.5-5.0); ALKALINE PHOSPHATASE 86 U/L (32-104); BUN 4 mg/dL (8-22); CALCIUM 8.7 mg/dL (8.8-10.2); CHLORIDE 108 mmol/L (98-107); COSMO 279; CREATININE 0.7 mg/dL (0.5-0.9); ESTIMATED GFR > 60; GLUCOSE 105 mg/dL (70-104); GOT 16 U/L (10-30); GPT 10 U/L (10-36); MAGNESIUM 1.9 mg/dL (1.5-2.7); POTASSIUM 3.7 mmol/L (3.5-5.1); SODIUM 141 mmol/L (136-145); TCO2 23 mmol/L (25-35); TOTAL PROTEIN 5.9 g/dL (6.3-8.3)
[2019-10-10] MEDS: TRILEPTAL PO SCH (09:16)
[2019-10-10 09:17] LABS: BASO# 0.03 X1000 (0.0-0.2); BASO% 0.3 % (0.0-0.8); EOS# 0.19 X1000 (0.0-0.7); HEMATOCRIT 36.7 % (37.0-47.0); HEMOGLOBIN 12.5 g/dL (12.0-16.0); IMM GRAN# 0.02 X1000 (0.0-0.04); IMM GRAN% 0.2 % (0.0-0.5); LYMPH# 1.04 X1000 (1.2-3.4); LYMPH% 10.8 % (20.5-51.1); MCH 29.5 PG (27-31); MCHC 34.1 g/dL (33-37); MCV 86.6 FL (81-99); MONO# 0.42 X1000 (0.11-0.59); MONO% 4.4 % (1.7-9.3); MPV 8.6 FL (7.4-10.4); NEUT# 7.94 X1000 (1.4-6.5); NEUT% 82.3 % (42.2-75.2); PLT 225 X1000 (130-400); RBC 4.24 XMIL (4.2-5.4); RDW 12.2 % (11.5-14.5); WBC 9.64 X1000 (4.8-10.8)
--- NOTE | 2019-10-10 14:37 | PROGRESS NOTE ---
DATE: 10/10/2019 SUBJECTIVE: I have seen and examined Ms. Montejo today. Ms. Montejo refers to be doing well. She denies to be suicidal any longer. She says she has been very sorry for what she did and that she wants to go back and take care of her mom. OBJECTIVE: Vital signs: Blood pressure is 131/78, pulse of 75 respirations 23, temperature 97.9 degrees. General: Ms. Montejo is a 44-year-old female. She is in bed, was not in any distress. HEENT: Mucosa is pink and moist. Anicteric. Acyanotic. Neck: Supple. Chest: Clear to auscultation. There were no crepitations, no rhonchi. Cardiovascular: Regular rate and rhythm. No murmurs, no rubs, no gallops. Abdomen: Soft, nontender. There is an old infraumbilical surgical scar. Extremities: No pedal edema. LOAD PLANNER: Patient was awake, alert, oriented. Psychiatric: Ms. Montejo was calmer today. Seems to have very good judgment. She denies any suicidal ideation. LABORATORY DATA: Has also been reviewed. Both CBC and chemistry are unremarkable. MEDICATIONS: Have all been reviewed, no changes. ASSESSMENT: 1. Suicidal attempts with psychotropic drug overdose. 2. Drug overdose with suicidal intent. 3. History of bipolar disorder. 4. Altered mental status on presentation secondary to drug-induced encephalopathy, improved. 5. Constipation. The patient is on a bowel regimen. PLAN: In general, Ms. Montejo refers to be doing well. She denies any more suicidality. However, she has been evaluated by [facility] and have actually called and spoken with the screener who recommends that Ms. Montejo gets to go to an inpatient psych acute hospitalization. They do not have a bed at this point, but they hope to get beds open hopefully later on today, and they will get back to us with that. If this still do not have a bed, they still recommend that she goes inpatient and that we should look for maybe a facility that does dual diagnosis. cc: Celso Dubon MD I have spoken with the screener from [facility]. Their recommendation is to get Ms Montejo to [facility] or an inpatient psych facility that accepts dual diagnosis. I was also told that if [facility] gets an open bed today, they will call and arrange for her to there. I have discussed the plan with Ms Gustabo and though she really wants to go home, she has agreed to go to [facility] if beds becomes available. HAILEY
[2019-10-10] MEDS ORDERED: NICODERM PATCH TD SCH (15:15)
[2019-10-10] MEDS ORDERED: ZANAFLEX PO SCH (17:00)
[2019-10-10 18:00] VITALS: BP 132/76
[2019-10-10] MEDS ORDERED: NEURONTIN PO SCH (21:00)
[2019-10-10] MEDS ORDERED: ATARAX PO SCH (21:00)
--- NOTE | 2019-10-12 03:51 | DISCHARGE SUMMARY ---
ADMISSION DATE: 10/09/2019 DISCHARGE DATE: 10/10/2019 DISPOSITION: Kim Silva. CONSULTATION DURING THIS ADMISSION: [facility] was consulted. INVESTIGATIVE PROCEDURES: None. IMAGING STUDIES: Chest x-ray was unremarkable. ADMISSION DIAGNOSES: 1. Suicidal attempt. 2. Drug overdose with suicidal intent. 3. History of bipolar disorder. 4. Altered mental status on presentation. DIAGNOSES AT TIME OF DISCHARGE/TRANSFER: 1. Suicidal attempt with psychotropic drug overdose. 2. Altered mental status secondary to drug-induced encephalopathy on presentation. 3. Drug overdose with suicidal intent. 4. History of bipolar disorder. 5. Constipation. PRESENTING COMPLAINT: Ms. Montejo is a 44-year-old female with history of bipolar disorder, had issues with the boyfriend. They started having some altercation on the day of admission, she got mad, took multiple G-Pep pills with the intention to kill herself. She came to the emergency room, she was evaluated. She was somehow somnolent, was admitted for further medical care. HOSPITAL COURSE: Ms Montejo was admitted to the medical floor under suicide observation, was monitored cardiac-mckeon. EKGs were unremarkable. Laboratory data was also normal. The following day, mentation had significantly improved, we thought she was stable enough to be discharged, so we consulted [facility]. She was initially screened, later that day a bed became available and Ms Montejo was transferred to [facility] for more psychiatric evaluation. TIME SPENT: For discharge is 35 minutes. cc: Celso Dubon MD
== END 2019-10-10 19:15 | DRG 917 ==
LOC: SUPCPDRO → EDIPHOLD 12:13 → ED 12:13 → OBSVTOIN 15:49 → 1N 10-10 06:27
PROVIDERS: ATTEND Internal Medicine